=== PATIENT | male | born 1965 | race African-American/Black ===

== ENCOUNTER → 2018-10-01 | Outpatient (CLI) | payer BC ==
[2018-10-01 15:22] LABS: HCT 42.3 % (39.0-53.0); HGB 13.9 gm/dL (13.0-17.5); MCH 30.2 pg (25.0-35.0); MCHC 32.9 g/dL (31.0-37.0); MCV 91.6 fL (80.0-100.0); Mean Platelet Volume 7.6; Platelet Count 174 k/uL (150-450); RBC 4.62 m/uL (4.30-5.90); RDW 13.2 % (11.5-15.5); WBC 7.2 k/uL (3.8-10.6)
[2018-10-01 22:43] LABS: Hemoglobin A1C 6.3 % (4.0-6.0)
[2018-10-02 02:58] LABS: Albumin 4.3 g/dL (3.80-4.90); Albumin/Globulin Ratio 1.87 (1.20-2.10); Anion Gap 7.8 mmol/L (4.00-12.00); Calcium 9.1 mg/dL (8.7-10.3); Carbon Dioxide 24.2 mmol/L (21.6-31.8); Globulin 2.3 g/dL (2.1-3.7); LDL Cholesterol,Calculated 99.8 mg/dL (0.0-131.0); Potassium 4.1 mmol/L (3.5-5.5); Total Bilirubin 0.4 mg/dL (0.2-1.2); Total Protein 6.6 g/dL (6.2-8.2); VLDL Calculation 35.2 mg/dL (5.00-40.00)
== END ==
LOC: LABWHC1 14:56
PROVIDERS: ATTEND Physician Assistant Medical
DX: E11.9 Type 2 diabetes mellitus without complications (principal); E03.9 Hypothyroidism, unspecified; I10 Essential (primary) hypertension
CPT/HCPCS: 36415; 80053; 80061; 83036; 84443; 85027

== ENCOUNTER 2019-09-30 11:48 | Emergency (ER) | payer BC ==
[2019-09-30] MEDS ORDERED: SODIUM CHLORIDE 0.9% 1,000 ML IV STA (12:12)
[2019-09-30] MEDS ORDERED: KETOROLAC 30 MG/ML 1 ML VIAL IVP STA (12:12)
[2019-09-30] MEDS ORDERED: ONDANSETRON 4 MG/2 ML VIAL IVP STA (12:12)
[2019-09-30 12:35] LABS: Basophils # (A) 0.1 k/uL (0-0.2); Basophils % (A) 1 %; Eosinophils # (A) 0.1 k/uL (0-0.7); Eosinophils % (A) 1 %; HCT 42.4 % (39.0-53.0); HGB 13.9 gm/dL (13.0-17.5); Lymphocytes # (A) 1.3 k/uL (1.0-4.8); Lymphocytes % (A) 11 %; MCH 29.9 pg (25.0-35.0); MCHC 32.8 g/dL (31.0-37.0); MCV 91.2 fL (80.0-100.0); Mean Platelet Volume 6.9; Monocytes # (A) 0.7 k/uL (0-1.0); Monocytes % (A) 6 %; Neutrophils # (A) 10.2 k/uL (1.3-7.7); Neutrophils % (A) 81 %; Platelet Count 207 k/uL (150-450); RBC 4.65 m/uL (4.30-5.90); RDW 12.7 % (11.5-15.5); WBC 12.5 k/uL (3.8-10.6)
--- NOTE | 2019-09-30 12:48 | ED ---
Abdominal Pain HPI - General Chief Complaint: Abdominal Pain Stated Complaint: Flank pain Time Seen by Provider: 09/30/19 11:56 Source: patient Mode of arrival: ambulatory Limitations: no limitations - History of Present Illness Initial Comments: Patient is a 53-year-old male, with past medical history of diabetes, hypertension, hyperlipidemia, thyroid disease, presenting to the emergency Department with complaints of right flank pain that started early this morning. Patient states the pain started approximately 5 AM this morning and did wake him up from sleep. Patient states the pain as sharp in nature and does radiate to the right side at times. Patient denies fever, chills. Admits to vomiting and dry heaves this morning secondary to the pain. Patient denies history of kidney stones. Admits to history of appendectomy, no other abdominal surgeries. Patient denies hematuria or other urinary complaints. Patient has no other complaints at this time. Upon arrival to the ER, vital signs are stable. - Related Data Previous Rx's Medication Instructions Recorded Hydrocodone/Acetaminophen [[place] 1 tab PO Q6HR PRN #15 tab 09/30/19 5-325] Ibuprofen [Motrin] 400 mg PO Q8HR PRN #30 tab 09/30/19 Tamsulosin [Flomax] 0.4 mg PO DAILY #7 cap 09/30/19 Allergies Allergy/AdvReac Type Severity Reaction Status Date / Time No Known Allergies Allergy Verified 09/30/19 11:52 Review of Systems ROS Statement: Those systems with pertinent positive or pertinent negative responses have been documented in the HPI. ROS Other: All systems not noted in ROS Statement are negative. Past Medical History Past Medical History: Diabetes Mellitus History of Any Multi-Drug Resistant Organisms: None Reported Past Surgical History: Appendectomy Past Psychological History: No Psychological Hx Reported Smoking Status: Never smoker Past Alcohol Use History: Occasional Past Drug Use History: None Reported General Exam - General Exam Comments Initial Comments: GENERAL: Well-appearing, well-nourished and in no acute distress, but appears uncomfortable. HEAD: Atraumatic, normocephalic. EYES: Pupils equal round and reactive to light, extraocular movements intact, sclera anicteric, conjunctiva are normal. ENT: Nares patent, oropharynx clear without exudates. Moist mucous membranes. NECK: Normal range of motion, supple without lymphadenopathy or JVD. LUNGS: Breath sounds clear to auscultation bilaterally and equal. No wheezes rales or rhonchi. HEART: Regular rate and rhythm without murmurs, rubs or gallops. ABDOMEN: Soft, nontender, normoactive bowel sounds. No guarding, no rebound. No masses appreciated. No CVA tenderness. : Deferred EXTREMITIES: Normal range of motion, no pitting or edema. No clubbing or cyanosis. PSYCH: Normal mood, normal affect. SKIN: Warm, Dry, normal turgor, no rashes or lesions noted. Limitations: no limitations Course Vital Signs 09/30/19 09/30/19 09/30/19 11:50 13:29 15:23 Temperature 97.9 F 98.0 F Pulse Rate 84 82 90 Respiratory 20 18 18 Rate Blood Pressure 160/99 133/89 128/82 O2 Sat by Pulse 99 98 98 Oximetry Medical Decision Making - Medical Decision Making Patient is a 53-year-old male presenting with an acute onset right-sided flank pain that started this morning. Patient does not have history of kidney stones. Vital signs are stable upon arrival. Lab work reveals slight leukocytosis at 12.5, creatinine is slightly elevated at 1.68 from baseline 1.3. UA reveals small amount of blood. CT shows a moderate right hydronephrosis with perinephric edema secondary to a mid right ureteral calculus measuring [address] Eliceo Bolton was consulted who is okay with patient being discharged today. Patient will follow Dr. Bolton on Thursday, October 05 at 10 AM. Patient will be discharged home with Motrin, [place], Flomax. Patient will also be given a strainer. Patient is in agreement with this plan of care. Vital signs remained stable. Patient was given fluids and pain medicine and is comfortable at this time. Return parameters were discussed with the patient and he verbalized understanding. Case discussed with Dr. Fulton who saw the patient and agrees with plan of care. - Lab Data Result diagrams: 09/30/19 12:24 09/30/19 12:24 Lab Results 09/30/19 09/30/19 09/30/19 Range/Units 12:24 12:24 12:24 WBC 12.5 H (3.8-10.6) k/uL RBC 4.65 (4.30-5.90) m/uL Hgb 13.9 (13.0-17.5) gm/dL Hct 42.4 (39.0-53.0) % MCV 91.2 (80.0-100.0) fL MCH 29.9 (25.0-35.0) pg MCHC 32.8 (31.0-37.0) g/dL RDW 12.7 (11.5-15.5) % Plt Count 207 (150-450) k/uL Neutrophils % 81 % Lymphocytes % 11 % Monocytes % 6 % Eosinophils % 1 % Basophils % 1 % Neutrophils # 10.2 H (1.3-7.7) k/uL Lymphocytes # 1.3 (1.0-4.8) k/uL Monocytes # 0.7 (0-1.0) k/uL Eosinophils # 0.1 (0-0.7) k/uL Basophils # 0.1 (0-0.2) k/uL Sodium 142 (137-145) mmol/L Potassium 4.9 (3.5-5.1) mmol/L Chloride 108 H (98-107) mmol/L Carbon Dioxide 23 (22-30) mmol/L Anion Gap 11 mmol/L BUN 20 (9-20) mg/dL Creatinine 1.68 H (0.66-1.25) mg/dL Est GFR (CKD-EPI)AfAm 54 (>60 ml/min/1.73 sqM) Est GFR (CKD-EPI)NonAf 47 (>60 ml/min/1.73 sqM) Glucose 144 H (74-99) mg/dL Calcium 9.6 (8.4-10.2) mg/dL Total Bilirubin 0.5 (0.2-1.3) mg/dL AST 23 (17-59) U/L ALT 29 (21-72) U/L Alkaline Phosphatase 62 (38-126) U/L Total Protein 7.7 (6.3-8.2) g/dL Albumin 4.4 (3.5-5.0) g/dL Amylase 102 (30-110) U/L Lipase 173 (23-300) U/L Urine Color Yellow Urine Appearance Cloudy (Clear) Urine pH 5.0 (5.0-8.0) Ur Specific [place] 1.022 (1.001-1.035) Urine Protein Negative (Negative) Urine Glucose (UA) Negative (Negative) Urine Ketones Negative (Negative) Urine Blood Small H (Negative) Urine Nitrite Negative (Negative) Urine Bilirubin Negative (Negative) Urine Urobilinogen <2.0 (<2.0) mg/dL Ur Leukocyte Esterase Negative (Negative) Urine RBC 9 H (0-5) /hpf Urine WBC 1 (0-5) /hpf Uric Acid Crystals Occasional H (None) /hpf Urine Mucus Rare H (None) /hpf Disposition Clinical Impression: Calculus of right ureter, Abdominal pain Disposition: HOME SELF-CARE Condition: Stable Instructions (If sedation given, give patient instructions): Kidney Stones (ED) Additional Instructions: Please return to the Emergency Department if symptoms worsen or any other concerns. Follow-up with Dr. Bolton as discussed on October 05 at 10 AM. Take Motrin as needed for discomfort as well as [place] when needed for severe pain. Use strainer with urination. Prescriptions: Tamsulosin [Flomax] 0.4 mg PO DAILY #7 cap Ibuprofen [Motrin] 400 mg PO Q8HR PRN #30 tab PRN Reason: Pain Hydrocodone/Acetaminophen [[place] 5-325] 1 tab PO Q6HR PRN #15 tab PRN Reason: Pain Is patient prescribed a controlled substance at d/c from ED?: Yes When asked, does pt state using other controlled substances?: No If prescribed controlled substance>3 days was MAPS reviewed?: Prescribed <3 Days If opioid is for acute pain is fill amount 7 days or less?: Yes If Rx opioid, was Start Talking consent form obtained?: Yes Referrals: Annia Brown DO [Primary Care Provider] - 1-2 days Pardeep Bolton MD [STAFF PHYSICIAN] - 1-2 days
[2019-09-30 12:50] LABS: Appearance,Urine Cloudy (Clear); Bilirubin,Urine Negative (Negative); Blood,Urine Small (Negative); Color,Urine Yellow; Glucose,Urine (UA) Negative (Negative); Ketones,Urine Negative (Negative); Leukocyte Esterase,Urine Negative (Negative); Mucus,Urine Rare /hpf; Nitrite,Urine Negative (Negative); Protein,Urine Negative (Negative); RBC,Urine 9 /hpf (0-5); Specific Gravity,Urine 1.022 (1.001-1.035); Uric Acid Crystals,Urine Occasional /hpf; Urobilinogen,Urine <2.0 mg/dL (<2.0); WBC,Urine 1 /hpf (0-5)
[2019-09-30 12:55] LABS: Albumin 4.4 g/dL (3.5-5.0); Calcium 9.6 mg/dL (8.4-10.2); Potassium 4.9 mmol/L (3.5-5.1); Total Bilirubin 0.5 mg/dL (0.2-1.3); Total Protein 7.7 g/dL (6.3-8.2)
--- NOTE | 2019-09-30 13:10 | CT ---
EXAMINATION TYPE: CT abdomen pelvis wo con DATE OF EXAM: 09/30/2019 COMPARISON: Right abdominal pain HISTORY: Right sided abdominal pain. CT DLP: 1227.4 mGycm Automated exposure control for dose reduction was used. TECHNIQUE: Helical acquisition of images was performed from the lung bases through the pelvis. FINDINGS: LUNG BASES: No significant abnormality is appreciated. LIVER/GB: No significant abnormality is appreciated. PANCREAS: No significant abnormality is seen. SPLEEN: No significant abnormality is seen. ADRENALS: No significant abnormality is seen. KIDNEYS: There is moderate right hydronephrosis with perinephric edema. There are 2 punctate right renal calyc eal calcifications measuring 1 mm. There is an obstructing mid right ureteral calculus measuring 7 mm in diameter. REPRODUCTIVE ORGANS: No significant abnormality is seen URINARY BLADDER: No significant abnormality is seen. ADENOPATHY: None visualized. OSSEOUS STRUCTURES: Hypertrophic change of the vertebral column. BOWEL: Bowel gas pattern nonspecific. Appendix not seen with certainty. Small hiatal hernia noted. OTHER: Aorta of normal caliber. No free fluid. No free air. IMPRESSION: MODERATE RIGHT HYDRONEPHROSIS WITH PERINEPHRIC EDEMA SECONDARY TO A MID RIGHT URETERAL CALCULUS MEASU RING 7 MM.
[2019-09-30 13:31] VITALS: RESP 18
[2019-09-30 15:25] VITALS: BP 128/82; PULSE 90; TEMP 98
== END 2019-09-30 15:35 | disposition home or self-care (01) ==
LOC: EC 11:48
DX: N13.2 Hydronephrosis with renal and ureteral calculous obstruction (principal); E11.9 Type 2 diabetes mellitus without complications; I10 Essential (primary) hypertension; E78.5 Hyperlipidemia, unspecified
CPT/HCPCS: 36415; 80053; 82150; 83690; 85025; 81001; 74176; 99284; 96374; 96375; 96361 ×3; J2405; J1885

== ENCOUNTER 2019-10-14 10:17 | Day surgery (SDC) | payer BC ==
--- NOTE | 2019-10-13 17:00 | P.HPIHPCON ---
History of Present Illness H&P Date: 10/14/19 Chief Complaint: Right ureteral calculi Mr. Scott is a 54-year-old male that presented to our clinic with a 7 mm right- sided ureteral calculi. I discussed with him the options including ureteroscopy and shockwave lithotripsy. Discussed with him the risk and benefit of each approach. He elected to proceed with ureteroscopy. I Discussed with him with ureteroscopy there is a risk of bleeding infection and ureteral perforation. Discussed the risk of anesthesia with him. He understood all the risk and agreed to proceed with right-sided ureteroscopy Consent for Procedure: I have explained the operation/procedure to the patient, including the risks, benefits, side effects, alternative therapies (including not receiving the proposed treatment or service), the likelihood of the patient achieving his/her goals, and potential recuperation problems for the procedure/sedation/analgesia, as well as any blood products, if indicated. I also explained to the patient the risks, benefits and side effects of the alternatives, as well as the risks related to not receiving the proposed procedure, care, treatment, or services. - Constitutional Constitutional: Denies chills, Denies fever - Cardiovascular Cardiovascular: Denies chest pain, Denies leg edema Past Medical History Past Medical History: Diabetes Mellitus, Hyperlipidemia, Hypertension, Thyroid Disorder Additional Past Medical History / Comment(s): kidney stones History of Any Multi-Drug Resistant Organisms: None Reported Past Surgical History: Appendectomy Past Anesthesia/Blood Transfusion Reactions: No Reported Reaction Smoking Status: Never smoker - Past Family History Father Family Medical History: Deep Vein Thrombosis (DVT) Medications and Allergies Home Medications Medication Instructions Recorded Confirmed Type Hydrocodone/Acetaminophen [[place] 1 tab PO Q6HR PRN #15 tab 09/30/19 10/13/19 Rx 5-325] Ergocalciferol [Vitamin D2] 50,000 unit PO Q7D 10/13/19 10/13/19 History Levothyroxine Sodium [Synthroid] 50 mcg PO DAILY 10/13/19 10/13/19 History Ramipril [Altace] 5 mg PO 1700 10/13/19 10/13/19 History Simvastatin [Zocor] 20 mg PO HS 10/13/19 10/13/19 History metFORMIN HCL [Glucophage] 500 mg PO BID 10/13/19 10/13/19 History Allergies Allergy/AdvReac Type Severity Reaction Status Date / Time No Known Allergies Allergy Verified 10/13/19 12:38 Surgical - Exam - General well developed, well nourished - ENT normal mucosa, no hearing loss - Respiratory normal expansion, normal respiratory effort - Abdomen Abdomen: soft, non tender - Psychiatric oriented to time, oriented to person, oriented to place Assessment and Plan Assessment: 54 yo male with history of 7 mm midureteral stone, he elected to proceed with a right-sided ureteroscopy, holmium laser lithotripsy, stone basketing and stent placement
[~2019-10-14 10:17] MED LIST: DEXAMETHASONE SOD PHOSPHATE 10 MG/ML 1 ML VIAL IV ONE; HYDROmorphone 0.5 MG/0.5 ML SYRINGE IVP PRN; LIDOCAINE 1% 20 ML VIAL (10MG/ML) FOR IV START INTRADERMA PRN; ONDANSETRON 4 MG/2 ML VIAL IVP ONE; fentaNYL (PF) 50 MCG/ML 2 ML AMP IV PRN
[2019-10-14] MEDS: LACTATED RINGERS 1,000 ML IV SCH (10:46)
[2019-10-14 11:08] LABS: Glucose,Whole Blood 101 mg/dL (75-99)
--- NOTE | 2019-10-14 13:06 | XR ---
Abdomen History right-sided kidney stone frontal View the abdomen on [address] 09/30/2019 Faint calcifications seen overlying the lower pole the right kidney as noted on patient's CT. The rig ht ureteral calculus seen on patient's prior CT not seen with certainty. Exam may be somewhat limited by patient body habitus. Surgical clip present in the right hemiabdomen. IMPRESSION: Right-sided nephrolithiasis. Right ureteral calculus not well seen.
[2019-10-14] MEDS ORDERED: PROPOFOL 10 MG/ML 20 ML VIAL IV ONE (13:25)
[2019-10-14] MEDS ORDERED: ROCURONIUM BROMIDE 10 MG/ML 10 ML VIAL IV ONE (13:25)
[2019-10-14] MEDS ORDERED: fentaNYL (PF) 50 MCG/ML 2 ML AMP ONE (13:25)
[2019-10-14] MEDS ORDERED: LIDOCAINE 1% INJ 10MG/ML (20 ML MDV) ONE (13:25)
[2019-10-14] MEDS ORDERED: GLYCOPYRROLATE 0.2 MG/ML 2 ML VIAL ONE (13:25)
[2019-10-14] MEDS ORDERED: NEOSTIGMINE 1 MG/ML 10 ML VIAL ONE (13:25)
[2019-10-14] MEDS ORDERED: SUCCINYLCHOLINE CHLORIDE 100 MG/5 ML SYR IV ONE (13:25)
[2019-10-14] MEDS ORDERED: MIDAZOLAM 2 MG/2 ML VIAL ONE (13:25)
[2019-10-14 14:37] LABS: Glucose,Whole Blood 106 mg/dL (75-99)
[2019-10-14] MEDS ORDERED: LACTATED RINGERS 1,000 ML IV ONE (15:28)
--- NOTE | 2019-10-14 16:24 | FL ---
Fluoroscopy HISTORY: Stent placement 29 seconds fluoroscopy time supplied to the referring clinician. 1 intraoperative C-arm images docum ent the procedure. See dictated report from urology.
[2019-10-14] MEDS: LISINOPRIL 20 MG TAB PO SCH (17:10)
[2019-10-14] MEDS: SODIUM CHLORIDE 0.9% 1,000 ML IV SCH ×2 (17:11→18:24)
[2019-10-14 17:22] VITALS: BMI 38.2
[2019-10-14 18:01] LABS: Glucose,Whole Blood 88 mg/dL (75-99)
[2019-10-14] MEDS: HYDROcodone/APAP 5-325MG 1 EACH TAB PO PRN ×2 (18:24→23:33)
[2019-10-14 20:38] LABS: Glucose,Whole Blood 205 mg/dL (75-99)
[2019-10-14] MEDS: metFORMIN 500 MG TAB PO SCH (20:44)
[2019-10-14] MEDS: ATORVASTATIN 10 MG TAB PO SCH (20:45)
[2019-10-14] MEDS: HEPARIN SODIUM,PORCINE 5,000 UNIT/ML 1 ML VIAL SQ SCH (20:45)
[2019-10-14 21:51] LABS: Basophils # (A) 0.1 k/uL (0-0.2); Basophils % (A) 1 %; Eosinophils # (A) 0.1 k/uL (0-0.7); Eosinophils % (A) 1 %; HCT 39.9 % (39.0-53.0); HGB 12.6 gm/dL (13.0-17.5); Lymphocytes # (A) 1.1 k/uL (1.0-4.8); Lymphocytes % (A) 10 %; MCH 28.8 pg (25.0-35.0); MCHC 31.7 g/dL (31.0-37.0); MCV 90.9 fL (80.0-100.0); Mean Platelet Volume 6.8; Monocytes # (A) 0.4 k/uL (0-1.0); Monocytes % (A) 3 %; Neutrophils # (A) 9.7 k/uL (1.3-7.7); Neutrophils % (A) 84 %; Platelet Count 318 k/uL (150-450); RBC 4.39 m/uL (4.30-5.90); RDW 12.1 % (11.5-15.5); WBC 11.4 k/uL (3.8-10.6)
[2019-10-14 22:02] LABS: Calcium 9.4 mg/dL (8.4-10.2); Potassium 4.5 mmol/L (3.5-5.1)
--- NOTE | 2019-10-14 22:23 | P.OP ---
Date of Procedure: 10/14/19 Preoperative Diagnosis: Ureteral Calculi Postoperative Diagnosis: Ureteral Calculi/UTI Procedure(s) Performed: Cystoscopy, Right Renal Aspiration and ureteral stent placement Implants: 4.8 Fr X 26 cm stent Anesthesia: DAGMAR Surgeon: Jesus Marinelli Estimated Blood Loss (ml): 5 Pathology: other (right renal pelvis culture) Condition: stable Disposition: PACU Indications for Procedure: Mr. Estrada is a 54-year-old male that presented to our clinic with a 7 mm right- sided ureteral calculi. I discussed with him the options including ureteroscopy and shockwave lithotripsy. Discussed with him the risk and benefit of each approach. He elected to proceed with ureteroscopy. I Discussed with him with ureteroscopy there is a risk of bleeding infection and ureteral perforation. Discussed the risk of anesthesia with him. He understood all the risk and agreed to proceed with right-sided ureteroscopy Operative Findings: Purulent drainage from the collecting system on the right Description of Procedure: Patient was brought to the operating room, general anesthesia was induced. He was placed in dorsal lithotimy position and prepped and draped in sterile fashion. cystoscope fitted with 22 sheath was inserted to the bladder, but patient had multiple annular bulbar strictures that I was not able to navigate the scope past the stricture. At this time a cystoscope fitted with 19 Fr sheath was inserted and navigated through the bulbar strictures. Cystoscope was advanced into the bladder. Cystoscope was performed which showed no abnormality within the bladder. A 0.035 sensor wire was advanced through the scope and into the renal pelvis under fluoroscopy. At this time purulent drainage was noticed around the wire. The cystoscope was removed with wire in place. a 6 Fr catheter was passed over the wire and into the renal pelvis. Purulent drainage was obtained a sent for culture. The catheter was removed, with wire in place. a 4.8 Fr X 26 cm stent was passed over the wire under fluorscope the proximal and distal curl was confirmed on fluoroscopy. At this time the cystoscope with 19 Fr sheath was reinserted and distal curl was visualized. A 0.035 sensor wire was inserted through the cystoscope and into the bladder. a 16 Fr catheter was passed over the wire and into the bladder with return of clear urine. Patient was awaken from anesthesia and taken to recover room in stable condition.
[2019-10-15] MEDS: HYDROcodone/APAP 5-325MG 1 EACH TAB PO PRN ×2 (04:52→22:07)
[2019-10-15] MEDS: LEVOTHYROXINE 50 MCG TAB PO SCH (06:14)
[2019-10-15] MEDS: LACTATED RINGERS 1,000 ML IV SCH (06:15)
[2019-10-15] MEDS: SODIUM CHLORIDE 0.9% 1,000 ML IV SCH ×3 (06:16→22:07)
[2019-10-15 07:14] LABS: Glucose,Whole Blood 126 mg/dL (75-99)
[2019-10-15] MEDS: metFORMIN 500 MG TAB PO SCH ×2 (09:45→21:26)
[2019-10-15] MEDS: HEPARIN SODIUM,PORCINE 5,000 UNIT/ML 1 ML VIAL SQ SCH ×2 (09:45→21:26)
--- NOTE | 2019-10-15 10:08 | P.PN ---
Subjective Progress Note Date: 10/15/19 The patient is in his first postoperative day from cystoscopy and direct vision internal urethrotomy and placement of double-J catheter for an obstructing stone with pyelonephrosis. He feels better. His urine is clearing. His vital signs are stable. He is afebrile. Because of the strictures the catheter will remain in place stone next week. I will wait and see if the urine culture shows by tomorrow so we can determine discharge planning. In the meanwhile we'll continue with IV antibiotics. Objective - Vital Signs Vital signs: Vital Signs Temp 97.6 F 10/15/19 07:00 Pulse 78 10/15/19 07:00 Resp 17 10/15/19 07:00 BP 136/85 10/15/19 07:00 Pulse Ox 80 L 10/15/19 07:00 Intake & Output 10/14/19 10/15/19 10/15/19 18:59 06:59 18:59 Intake Total 1450 Output Total 0 1200 Balance 1450 -1200 Intake: IV 1450 Output: Urine 1200 Estimated Blood Loss 0 Other: Voiding Method Indwelling Catheter Indwelling Catheter Indwelling Catheter - Labs CBC & Chem 7: 10/14/19 21:09 10/14/19 21:09 Labs: Abnormal Lab Results - Last 24 Hours (Table) 10/14/19 10/14/19 10/14/19 Range/Units 10:57 14:35 20:38 WBC (3.8-10.6) k/uL Hgb (13.0-17.5) gm/dL Neutrophils # (1.3-7.7) k/uL Carbon Dioxide (22-30) mmol/L BUN (9-20) mg/dL Creatinine (0.66-1.25) mg/dL Glucose (74-99) mg/dL POC Glucose (mg/dL) 101 H 106 H 205 H (75-99) mg/dL 10/14/19 10/14/19 10/15/19 Range/Units 21:09 21:09 06:57 WBC 11.4 H (3.8-10.6) k/uL Hgb 12.6 L (13.0-17.5) gm/dL Neutrophils # 9.7 H (1.3-7.7) k/uL Carbon Dioxide 20 L (22-30) mmol/L BUN 21 H (9-20) mg/dL Creatinine 1.74 H (0.66-1.25) mg/dL Glucose 209 H (74-99) mg/dL POC Glucose (mg/dL) 126 H (75-99) mg/dL Microbiology - Last 24 Hours (Table) 10/14/19 14:07 Gram Stain - Preliminary Kidney Tissue Culture - Preliminary 10/14/19 14:07 Anaerobic Culture - Preliminary Kidney
[2019-10-15] MEDS: LISINOPRIL 20 MG TAB PO SCH (16:00)
[2019-10-15 17:17] LABS: Glucose,Whole Blood 136 mg/dL (75-99)
[2019-10-15] MEDS: ATORVASTATIN 10 MG TAB PO SCH (21:26)
[2019-10-16] MEDS: LEVOTHYROXINE 50 MCG TAB PO SCH (05:50)
[2019-10-16] MEDS: SODIUM CHLORIDE 0.9% 1,000 ML IV SCH (05:50)
[2019-10-16] MEDS: metFORMIN 500 MG TAB PO SCH (07:57)
[2019-10-16] MEDS: HEPARIN SODIUM,PORCINE 5,000 UNIT/ML 1 ML VIAL SQ SCH (07:57)
[2019-10-16 08:46] VITALS: BP 160/93; PULSE 80; RESP 16; TEMP 98.4
--- NOTE | 2019-10-16 11:27 | P.DS ---
Providers Attending physician: Jesus Marinelli MD Primary care physician: [place] [facility] Course: The patient was brought into the hospital 10/14/2019 for ureteroscopy and stone manipulation. The urine was grossly infected thus a stent was placed instead of the manipulation. Urethral strictures were identified and dealt with. Patient has done well. Cultures are still pending. He is afebrile. His vital signs are stable. I'll discharge home on Keflex. He'll follow-up with next week. Decisions on when the catheter will be removed and when the stone and stent will be removed can be made at that time. Condition is good. He'll take Tylenol or Motrin for pain. Patient understands instructions. Patient Condition at Discharge: Good Plan - Discharge Summary Discharge Rx Participant: Yes New Discharge Prescriptions: New Cephalexin [Keflex] 500 mg PO Q8HR #30 cap No Action Hydrocodone/Acetaminophen [[place] 5-325] 1 tab PO Q6HR PRN #15 tab PRN Reason: Pain Ergocalciferol [Vitamin D2] 50,000 unit PO Q7D metFORMIN HCL [Glucophage] 500 mg PO BID Simvastatin [Zocor] 20 mg PO HS Ramipril [Altace] 5 mg PO 1700 Levothyroxine Sodium [Synthroid] 50 mcg PO DAILY Discharge Medication List Hydrocodone/Acetaminophen [[place] 5-325] 1 tab PO Q6HR PRN #15 tab 09/30/19 [Rx] Ergocalciferol [Vitamin D2] 50,000 unit PO Q7D 10/13/19 [History] Levothyroxine Sodium [Synthroid] 50 mcg PO DAILY 10/13/19 [History] Ramipril [Altace] 5 mg PO 1700 10/13/19 [History] Simvastatin [Zocor] 20 mg PO HS 10/13/19 [History] metFORMIN HCL [Glucophage] 500 mg PO BID 10/13/19 [History] Cephalexin [Keflex] 500 mg PO Q8HR #30 cap 10/16/19 [Rx] Follow up Appointment(s)/Referral(s): Jesus Marinelli MD [STAFF PHYSICIAN] - 10/19/19 (call thursday for an appoinment probably thursday) Activity/Diet/Wound Care/Special Instructions: home with bacon Discharge Disposition: HOME SELF-CARE
[2019-10-16 11:43] LABS: Glucose,Whole Blood 99 mg/dL (75-99)
== END 2019-10-16 12:46 | disposition home or self-care (01) ==
LOC: OR 10:17 → 4SSUR 16:27 → OR 10-16 12:46
PROVIDERS: ATTEND Urology
DX: N20.1 Calculus of ureter (principal); N13.6 Pyonephrosis; N35.919 Unspecified urethral stricture, male, unspecified site; E11.9 Type 2 diabetes mellitus without complications; E78.5 Hyperlipidemia, unspecified; I10 Essential (primary) hypertension; E07.9 Disorder of thyroid, unspecified; Z87.442 Personal history of urinary calculi; Z84.89 Family history of other specified conditions; Z79.84 Long term (current) use of oral hypoglycemic drugs; Z79.890 Hormone replacement therapy; Z79.899 Other long term (current) drug therapy
CPT/HCPCS: 52332; 80048; 85025; 87070; 87205; 87075; 74018; C2625; C1769; C1758; J2250; J1644 ×3; J1100; J2710; J0690 ×3; J2405; J2001; J3010; J0330; J2704; J1170; 93005

== ENCOUNTER 2019-10-24 11:14 | Day surgery (SDC) | payer BC ==
[2019-10-19 12:41] VITALS: BMI 39.5
--- NOTE | 2019-10-22 22:05 | P.HPIHPCON ---
History of Present Illness H&P Date: 10/24/19 Chief Complaint: Right ureteral Calculi Mr. Moreno is a 54-year-old male with history of right-sided ureteral stone. he underwent ureteral stent placements on October 14, at that time it was noticed that he had purulent drainage from his right collecting system. Decision was made not to proceed with ureteroscopy at that time and a stent was placed. He presents today for definitive stone management. He agreed to proceed with ureteroscopy, discussed with him the risks including bleeding infection injury to the ureter. I also discussed the risks from anesthesia with him. He understood all the risk and agreed to proceed with the surgery Consent for Procedure: I have explained the operation/procedure to the patient, including the risks, benefits, side effects, alternative therapies (including not receiving the proposed treatment or service), the likelihood of the patient achieving his/her goals, and potential recuperation problems for the procedure/sedation/analgesia, as well as any blood products, if indicated. I also explained to the patient the risks, benefits and side effects of the alternatives, as well as the risks related to not receiving the proposed procedure, care, treatment, or services. - Constitutional Constitutional: Denies chills, Denies fever - Cardiovascular Cardiovascular: Denies chest pain, Denies leg edema Past Medical History Past Medical History: Diabetes Mellitus, Hyperlipidemia, Hypertension, Thyroid Disorder Additional Past Medical History / Comment(s): kidney stones, recent admission for urinary infection History of Any Multi-Drug Resistant Organisms: None Reported Past Surgical History: Appendectomy Additional Past Surgical History / Comment(s): cystoscopy 10-14-19 Past Anesthesia/Blood Transfusion Reactions: No Reported Reaction Smoking Status: Never smoker - Past Family History Father Family Medical History: Deep Vein Thrombosis (DVT) Medications and Allergies Home Medications Medication Instructions Recorded Confirmed Type Hydrocodone/Acetaminophen [[place] 1 tab PO Q6HR PRN #15 tab 09/30/19 10/19/19 Rx 5-325] Ergocalciferol [Vitamin D2] 50,000 unit PO Q7D 10/13/19 10/19/19 History Levothyroxine Sodium [Synthroid] 50 mcg PO DAILY 10/13/19 10/19/19 History Ramipril [Altace] 5 mg PO 1700 10/13/19 10/19/19 History Simvastatin [Zocor] 20 mg PO HS 10/13/19 10/19/19 History metFORMIN HCL [Glucophage] 500 mg PO BID 10/13/19 10/19/19 History Cephalexin [Keflex] 500 mg PO Q8HR #30 cap 10/16/19 10/19/19 Rx Allergies Allergy/AdvReac Type Severity Reaction Status Date / Time No Known Allergies Allergy Verified 10/19/19 12:31 Surgical - Exam - General well developed, well nourished - Respiratory normal expansion, normal respiratory effort - Abdomen Abdomen: soft, non tender - Psychiatric oriented to time, oriented to person, oriented to place Assessment and Plan Assessment: 54-year-old male with a right-sided ureteral stone -OR for right-sided sided ureteroscopy, holmium laser lithotripsy, stone basketing, and stent exchange
[~2019-10-24 11:14] MED LIST changes: -DEXAMETHASONE SOD PHOSPHATE 10 MG/ML 1 ML VIAL IV ONE; +LACTATED RINGERS 1,000 ML IV SCH; -fentaNYL (PF) 50 MCG/ML 2 ML AMP IV PRN
[2019-10-24 11:53] LABS: Glucose,Whole Blood 114 mg/dL (75-99)
[2019-10-24] MEDS ORDERED: PROPOFOL 10 MG/ML 20 ML VIAL IV ONE (13:27)
[2019-10-24] MEDS ORDERED: MIDAZOLAM 2 MG/2 ML VIAL ONE (13:27)
[2019-10-24] MEDS ORDERED: fentaNYL (PF) 50 MCG/ML 2 ML AMP ONE (13:27)
[2019-10-24] MEDS ORDERED: ceFAZolin 1,000 MG VIAL ONE (13:27)
[2019-10-24] MEDS ORDERED: SUCCINYLCHOLINE CHLORIDE 100 MG/5 ML SYR IV ONE (13:27)
[2019-10-24] MEDS ORDERED: ROCURONIUM BROMIDE 10 MG/ML 10 ML VIAL IV ONE (13:27)
[2019-10-24] MEDS ORDERED: GLYCOPYRROLATE 0.2 MG/ML 2 ML VIAL ONE (13:27)
[2019-10-24] MEDS ORDERED: LIDOCAINE 1% INJ 10MG/ML (20 ML MDV) ONE (13:27)
[2019-10-24] MEDS ORDERED: NEOSTIGMINE 1 MG/ML 10 ML VIAL ONE (13:27)
[2019-10-24] MEDS ORDERED: KETOROLAC 30 MG/ML 1 ML VIAL ONE (13:27)
[2019-10-24] MEDS ORDERED: SODIUM CHLORIDE 0.9% 100 ML with ceFAZolin 2,000 MG IV ONE ×2 (13:50)
--- NOTE | 2019-10-24 14:48 | FL ---
EXAMINATION TYPE: FL guidance operating room DATE OF EXAM: 10/24/2019 HISTORY: Flouroscopy time 20 seconds of fluoroscopy provided. IMPRESSION: 1. Fluoroscopy time.
--- NOTE | 2019-10-24 14:57 | P.OP ---
Date of Procedure: 10/24/19 Preoperative Diagnosis: Right ureteral Calculi Postoperative Diagnosis: Same Procedure(s) Performed: Cystoscopy, right ureteroscopy, holmium laser lithotripsy, stone basketing and stent exchange Implants: 4.8-[place] by 26 cm stent Anesthesia: DAGMAR Surgeon: Jesus Marinelli Estimated Blood Loss (ml): 5 Pathology: other (right ureteral stone for analysis) Condition: stable Indications for Procedure: Mr. Moreno is a 54-year-old male with history of right-sided ureteral stone. He underwent ureteral stent placements on October 14, at that time it was noticed that he had purulent drainage from his right collecting system. Decision was made not to proceed with ureteroscopy at that time and a stent was placed. He presents today for definitive stone management. He agreed to proceed with ureteroscopy, discussed with him the risks including bleeding infection injury to the ureter. I also discussed the risks from anesthesia with him. He understood all the risk and agreed to proceed with the surgery Operative Findings: Right ureteral stone impaction of the proximal ureter Description of Procedure: The patient was brought to the operating room, general anesthesia was induced. He was prepped and draped in sterile fashion placed in a dorsal lithotomy position. Cystoscope fitted with a 22 sheath was inserted per urethra the stents was grasped with a stent grasper removed to the meatus a 0.035 sensor wire was advanced through the stent and up to the renal pelvis. The stent was removed with the wire in place. A semirigid ureteroscope was inserted per urethra and advanced up the right ureteral orifice the ureteroscope was advanced up to the proximal ureter where a large stone was encountered of the stone was impacted at that site. using the holmium laser the stone was fragmented into small fragments. the fragments were removed using the zerotip stone basket. repeat ureteroscopy showed no residual stone or a injury to the ureter. There ureteroscope was withdrawn the wire in place. Stones were sent for analysis. The cystoscope was backloaded over the wire. A ureteral stent was passed over the wire into the renal pelvis. The proximal curl was confirmed on fluoroscopy and the distal curl was confirmed on cystoscopy. The bladder was emptied at the end of the case the patient was taken to PACU in stable condition
[2019-10-24 15:00] VITALS: TEMP 98.3
[2019-10-24 15:31] VITALS: PULSE 77; RESP 18
[2019-10-24 16:09] VITALS: BP 123/82
== END 2019-10-24 16:13 | disposition home or self-care (01) ==
LOC: OR 11:14
PROVIDERS: ATTEND Urology
DX: N20.1 Calculus of ureter (principal); N39.0 Urinary tract infection, site not specified; E11.9 Type 2 diabetes mellitus without complications; E78.5 Hyperlipidemia, unspecified; I10 Essential (primary) hypertension; E07.9 Disorder of thyroid, unspecified; Z87.442 Personal history of urinary calculi; Z98.890 Other specified postprocedural states; Z79.899 Other long term (current) drug therapy; Z79.890 Hormone replacement therapy; Z79.84 Long term (current) use of oral hypoglycemic drugs; Z79.2 Long term (current) use of antibiotics; Z82.49 Family history of ischemic heart disease and other diseases of the circulatory system
CPT/HCPCS: 52356; 82365; C2625; J2250; J2710; J2405; J0690; J2001; J3010; J1885; J0330; J2704

== ENCOUNTER 2020-09-20 06:57 | Day surgery (SDC) | payer BC ==
[2020-09-19 11:30] VITALS: BMI 40.7
[~2020-09-20 06:57] MED LIST changes: -HYDROmorphone 0.5 MG/0.5 ML SYRINGE IVP PRN; -LIDOCAINE 1% 20 ML VIAL (10MG/ML) FOR IV START INTRADERMA PRN; -ONDANSETRON 4 MG/2 ML VIAL IVP ONE
[2020-09-20] MEDS ORDERED: LIDOCAINE 1% (10MG/ML) FOR IV START INTRADERMA ONE (07:20)
[2020-09-20 07:21] LABS: Glucose,Whole Blood 101 mg/dL (75-99)
[2020-09-20 07:24] VITALS: TEMP 97.1
[2020-09-20] MEDS ORDERED: PROPOFOL 10 MG/ML 20 ML VIAL IV ONE (07:40)
--- NOTE | 2020-09-20 07:51 | P.GSHP ---
History of Present Illness H&P Date: 09/20/20 Chief Complaint: Screening colonoscopy This a 54-year-old male presents today for screening colonoscopy. Patient denies any significant GI complaints. He's never had a colonoscopy before. Past Medical History Past Medical History: Diabetes Mellitus, Hyperlipidemia, Hypertension, Thyroid Disorder Additional Past Medical History / Comment(s): kidney stones, recent admission for urinary infection History of Any Multi-Drug Resistant Organisms: None Reported Past Surgical History: Appendectomy Additional Past Surgical History / Comment(s): cystoscopy Past Anesthesia/Blood Transfusion Reactions: No Reported Reaction Past Psychological History: No Psychological Hx Reported Smoking Status: Never smoker Past Alcohol Use History: Occasional Past Drug Use History: None Reported - Past Family History Father Family Medical History: Deep Vein Thrombosis (DVT) Mother Family Medical History: Cancer Medications and Allergies Home Medications Medication Instructions Recorded Confirmed Type Ergocalciferol [Vitamin D2] 50,000 unit PO MO 10/13/19 09/19/20 History Levothyroxine Sodium [Synthroid] 50 mcg PO DAILY 10/13/19 09/19/20 History Simvastatin [Zocor] 20 mg PO HS 10/13/19 09/19/20 History metFORMIN HCL [Glucophage] 500 mg PO BID 10/13/19 09/19/20 History ramipriL [Altace] 5 mg PO 1700 10/13/19 09/19/20 History Allergies Allergy/AdvReac Type Severity Reaction Status Date / Time No Known Allergies Allergy Verified 10/24/19 11:36 Surgical - Exam Vital Signs Temp Pulse Resp BP Pulse Ox 97.1 F L 71 20 120/73 97 09/20/20 07:11 09/20/20 07:11 09/20/20 07:11 09/20/20 07:11 09/20/20 07:11 - General well developed, well nourished, no distress - Eyes PERRL - ENT normal pinna - Neck no masses - Respiratory normal expansion - Cardiovascular Rhythm: regular - Abdomen Abdomen: soft, non tender Results - Labs Abnormal Lab Results - Last 24 Hours (Table) 09/20/20 Range/Units 07:18 POC Glucose (mg/dL) 101 H (75-99) mg/dL Assessment and Plan Assessment: We'll perform screening colonoscopy
--- NOTE | 2020-09-20 07:58 | P.OP ---
Date of Procedure: 09/20/20 Preoperative Diagnosis: Screening colonoscopy Postoperative Diagnosis: Normal colonoscopy Procedure(s) Performed: Colonoscopy Anesthesia: MAC Surgeon: Pancho Salazar Pathology: none sent Condition: stable Disposition: PACU Description of Procedure: PROCEDURE: The patient was placed on the endoscopy table in the lateral position. Digital rectal examination was performed which revealed no abnormalities. The prostate was symmetrical without nodules. Flexible colonoscope was then placed in the patient's anus and passed throughout the entire colon. The ileocecal valve was visualized. The cecum, ascending, transverse, descending and sigmoid colon were normal. The rectum was normal as well. There were no masses, polyps or diverticula noted in the entire colon. SUMMARY OF FINDINGS: Normal colonoscopy.
[2020-09-20 08:03] VITALS: RESP 16
[2020-09-20 08:17] VITALS: BP 124/85; PULSE 76
== END 2020-09-20 08:41 | disposition home or self-care (01) ==
LOC: ORWHC2ENDO 06:57
PROVIDERS: ATTEND Surgery
DX: Z12.11 Encounter for screening for malignant neoplasm of colon (principal); I10 Essential (primary) hypertension; E78.5 Hyperlipidemia, unspecified; E11.9 Type 2 diabetes mellitus without complications; E07.9 Disorder of thyroid, unspecified; Z87.442 Personal history of urinary calculi; Z98.890 Other specified postprocedural states; Z82.49 Family history of ischemic heart disease and other diseases of the circulatory system; Z80.9 Family history of malignant neoplasm, unspecified; Z79.890 Hormone replacement therapy; Z79.84 Long term (current) use of oral hypoglycemic drugs; Z79.899 Other long term (current) drug therapy; E66.01 Morbid (severe) obesity due to excess calories; Z68.41 Body mass index [BMI] 40.0-44.9, adult
CPT/HCPCS: G0121; J2704; 45378

== ENCOUNTER 2022-06-20 17:26 | Inpatient (IN) | payer BC ==
[2022-06-20] MEDS ORDERED: FAMOTIDINE 20 MG/2 ML VIAL IV STA (18:21)
[2022-06-20] MEDS ORDERED: SODIUM CHLORIDE 0.9% 1,000 ML IV STA ×2 (18:21→20:21)
[2022-06-20] MEDS ORDERED: ONDANSETRON 4 MG/2 ML VIAL IVP STA (18:21)
[2022-06-20] MEDS ORDERED: KETOROLAC 15 MG/ML 1 ML VIAL IVP STA (18:21)
--- NOTE | 2022-06-20 18:27 | ED ---
Abdominal Pain HPI - General Chief Complaint: Abdominal Pain Stated Complaint: abd pain Time Seen by Provider: 06/20/22 17:55 Source: patient, family, RN notes reviewed Mode of arrival: ambulatory Limitations: no limitations - History of Present Illness Initial Comments: This is a 56-year-old male who presents to the emergency department with abdominal pain. This started yesterday. Describes this as a soreness in the center of his abdomen. Unsure if he may have eaten something bad. He has associated nausea but no vomiting. Today he had an episode of diarrhea. States that he has never had a pain like this before. Denies any fevers or chills. He has had his appendix removed. He has been treated for diabetes for 4 years. Denies any hx of DKA. Currently taking 500mg of Metformin twice daily. Denies any fevers, chills, sore throat, cough, dyspnea, chest pain, palpitations, vomiting, back pain, or headaches. MD Complaint: abdominal pain Onset/Timin -: days(s) Location: periumbilical Consistency: constant Associated Symptoms: nausea, diarrhea - Related Data Home Medications Medication Instructions Recorded Confirmed Ergocalciferol [Vitamin D2] 50,000 unit PO MO 10/13/19 06/20/22 Levothyroxine Sodium [Synthroid] 50 mcg PO DAILY 10/13/19 06/20/22 Simvastatin [Zocor] 20 mg PO HS 10/13/19 06/20/22 metFORMIN HCL [Glucophage] 500 mg PO BID 10/13/19 06/20/22 ramipriL [Altace] 5 mg PO DAILY 10/13/19 06/20/22 Latanoprostene Bunod [Vyzulta] 1 drop BOTH EYES HS 06/20/22 06/20/22 Allergies Allergy/AdvReac Type Severity Reaction Status Date / Time No Known Allergies Allergy Verified 06/20/22 22:13 Review of Systems ROS Statement: Those systems with pertinent positive or pertinent negative responses have been documented in the HPI. ROS Other: All systems not noted in ROS Statement are negative. Past Medical History Past Medical History: Diabetes Mellitus, Hyperlipidemia, Hypertension, Thyroid Disorder Additional Past Medical History / Comment(s): kidney stones, recent admission for urinary infection History of Any Multi-Drug Resistant Organisms: None Reported Past Surgical History: Appendectomy Additional Past Surgical History / Comment(s): cystoscopy Past Anesthesia/Blood Transfusion Reactions: No Reported Reaction Past Psychological History: No Psychological Hx Reported Smoking Status: Never smoker Past Alcohol Use History: Occasional Past Drug Use History: None Reported - Past Family History Father Family Medical History: Deep Vein Thrombosis (DVT) Mother Family Medical History: Cancer General Exam Limitations: no limitations General appearance: alert, in distress Head exam: Present: atraumatic, normocephalic, normal inspection Respiratory exam: Present: normal lung sounds bilaterally. Absent: respiratory distress, wheezes, rales, rhonchi, stridor Cardiovascular Exam: Present: regular rate, normal rhythm, normal heart sounds. Absent: systolic murmur, diastolic murmur, rubs, gallop, clicks GI/Abdominal exam: Present: soft, tenderness (Periumbilical), hypoactive bowel sounds. Absent: distended, guarding, rebound, rigid Neurological exam: Present: alert, oriented X3, CN II-XII intact Psychiatric exam: Present: normal affect, normal mood Skin exam: Present: warm, dry, intact, normal color. Absent: rash Course Vital Signs 06/20/22 06/20/22 17:32 20:00 Temperature 98.5 F Pulse Rate 117 H 99 Respiratory 20 18 Rate Blood Pressure 135/82 O2 Sat by Pulse 97 99 Oximetry Medical Decision Making - Medical Decision Making This is a 56-year-old male who presents to the emergency department for abdominal pain. Lab work and urinalysis consistent with DKA. Patient has a glucose of 317, a bicarbonate of 12, an anion gap of 18, pH of 7.3, and he is acetone positive. He was rehydrated with 2 L of normal saline and started on the DKA protocol. Discussed with the patient that this is likely the reason for the abdominal pain, nausea, and diarrhea. Patient will be admitted to medicine for further management. He may need medication adjustments, as he is currently only taking 500 mg of metformin twice daily. A1c pending at time of admission. This case was discussed in detail with the attending ED physician. Presentation, findings, and treatment plan discussed in detail as well. - Lab Data Result diagrams: 06/20/22 18:37 06/20/22 18:37 Lab Results 06/20/22 06/20/22 06/20/22 Range/Units 18:37 18:37 18:37 WBC 9.0 (3.8-10.6) k/uL RBC 5.26 (4.30-5.90) m/uL Hgb 15.9 (13.0-17.5) gm/dL Hct 48.4 (39.0-53.0) % MCV 92.0 (80.0-100.0) fL MCH 30.2 (25.0-35.0) pg MCHC 32.8 (31.0-37.0) g/dL RDW 13.2 (11.5-15.5) % Plt Count 150 (150-450) k/uL MPV 10.6 Neutrophils % 76 % Lymphocytes % 12 % Monocytes % 8 % Eosinophils % 1 % Basophils % 1 % Neutrophils # 6.8 (1.3-7.7) k/uL Lymphocytes # 1.1 (1.0-4.8) k/uL Monocytes # 0.8 (0-1.0) k/uL Eosinophils # 0.1 (0-0.7) k/uL Basophils # 0.0 (0-0.2) k/uL VBG pH (7.31-7.41) VBG pCO2 (37-51) mmHg VBG HCO3 (24-28) mmol/L Sodium 133 L (137-145) mmol/L Potassium 5.3 H (3.5-5.1) mmol/L Chloride 103 (98-107) mmol/L Carbon Dioxide 12 L (22-30) mmol/L Anion Gap 18 mmol/L BUN 12 (9-20) mg/dL Creatinine 1.08 (0.66-1.25) mg/dL Est GFR (CKD-EPI)AfAm 89 (>60 ml/min/1.73 sqM) Est GFR (CKD-EPI)NonAf 77 (>60 ml/min/1.73 sqM) Glucose 317 H (74-99) mg/dL Calcium 9.4 (8.4-10.2) mg/dL Phosphorus (2.5-4.5) mg/dL Magnesium (1.6-2.3) mg/dL Total Bilirubin 1.0 (0.2-1.3) mg/dL AST 31 (17-59) U/L ALT 28 (4-49) U/L Alkaline Phosphatase 92 (38-126) U/L Troponin I <0.012 (0.000-0.034) ng/mL Total Protein 8.3 H (6.3-8.2) g/dL Albumin 4.6 (3.5-5.0) g/dL Amylase 91 (30-110) U/L Lipase 171 (23-300) U/L Urine Color Urine Appearance (Clear) Urine pH (5.0-8.0) Ur Specific [place] (1.001-1.035) Urine Protein (Negative) Urine Glucose (UA) (Negative) Urine Ketones (Negative) Urine Blood (Negative) Urine Nitrite (Negative) Urine Bilirubin (Negative) Urine Urobilinogen (<2.0) mg/dL Ur Leukocyte Esterase (Negative) Urine RBC (0-5) /hpf Urine WBC (0-5) /hpf Ur Squamous Epith Cells (0-4) /hpf Urine Mucus (None) /hpf Acetone, Qual (Negative) 06/20/22 06/20/22 06/20/22 Range/Units 19:10 19:39 19:39 WBC (3.8-10.6) k/uL RBC (4.30-5.90) m/uL Hgb (13.0-17.5) gm/dL Hct (39.0-53.0) % MCV (80.0-100.0) fL MCH (25.0-35.0) pg MCHC (31.0-37.0) g/dL RDW (11.5-15.5) % Plt Count (150-450) k/uL MPV Neutrophils % % Lymphocytes % % Monocytes % % Eosinophils % % Basophils % % Neutrophils # (1.3-7.7) k/uL Lymphocytes # (1.0-4.8) k/uL Monocytes # (0-1.0) k/uL Eosinophils # (0-0.7) k/uL Basophils # (0-0.2) k/uL VBG pH (7.31-7.41) VBG pCO2 (37-51) mmHg VBG HCO3 (24-28) mmol/L Sodium (137-145) mmol/L Potassium (3.5-5.1) mmol/L Chloride (98-107) mmol/L Carbon Dioxide (22-30) mmol/L Anion Gap mmol/L BUN (9-20) mg/dL Creatinine (0.66-1.25) mg/dL Est GFR (CKD-EPI)AfAm (>60 ml/min/1.73 sqM) Est GFR (CKD-EPI)NonAf (>60 ml/min/1.73 sqM) Glucose (74-99) mg/dL Calcium (8.4-10.2) mg/dL Phosphorus 3.9 (2.5-4.5) mg/dL Magnesium 1.6 (1.6-2.3) mg/dL Total Bilirubin (0.2-1.3) mg/dL AST (17-59) U/L ALT (4-49) U/L Alkaline Phosphatase (38-126) U/L Troponin I (0.000-0.034) ng/mL Total Protein (6.3-8.2) g/dL Albumin (3.5-5.0) g/dL Amylase (30-110) U/L Lipase (23-300) U/L Urine Color Yellow Urine Appearance Clear (Clear) Urine pH 5.5 (5.0-8.0) Ur Specific [place] 1.037 H (1.001-1.035) Urine Protein 1+ H (Negative) Urine Glucose (UA) 4+ H (Negative) Urine Ketones 4+ H (Negative) Urine Blood Small H (Negative) Urine Nitrite Negative (Negative) Urine Bilirubin Negative (Negative) Urine Urobilinogen <2.0 (<2.0) mg/dL Ur Leukocyte Esterase Negative (Negative) Urine RBC 1 (0-5) /hpf Urine WBC 1 (0-5) /hpf Ur Squamous Epith Cells 1 (0-4) /hpf Urine Mucus Rare H (None) /hpf Acetone, Qual Positive (Negative) 06/20/22 Range/Units 19:48 WBC (3.8-10.6) k/uL RBC (4.30-5.90) m/uL Hgb (13.0-17.5) gm/dL Hct (39.0-53.0) % MCV (80.0-100.0) fL MCH (25.0-35.0) pg MCHC (31.0-37.0) g/dL RDW (11.5-15.5) % Plt Count (150-450) k/uL MPV Neutrophils % % Lymphocytes % % Monocytes % % Eosinophils % % Basophils % % Neutrophils # (1.3-7.7) k/uL Lymphocytes # (1.0-4.8) k/uL Monocytes # (0-1.0) k/uL Eosinophils # (0-0.7) k/uL Basophils # (0-0.2) k/uL VBG pH 7.30 L (7.31-7.41) VBG pCO2 33 L (37-51) mmHg VBG HCO3 16 L (24-28) mmol/L Sodium (137-145) mmol/L Potassium (3.5-5.1) mmol/L Chloride (98-107) mmol/L Carbon Dioxide (22-30) mmol/L Anion Gap mmol/L BUN (9-20) mg/dL Creatinine (0.66-1.25) mg/dL Est GFR (CKD-EPI)AfAm (>60 ml/min/1.73 sqM) Est GFR (CKD-EPI)NonAf (>60 ml/min/1.73 sqM) Glucose (74-99) mg/dL Calcium (8.4-10.2) mg/dL Phosphorus (2.5-4.5) mg/dL Magnesium (1.6-2.3) mg/dL Total Bilirubin (0.2-1.3) mg/dL AST (17-59) U/L ALT (4-49) U/L Alkaline Phosphatase (38-126) U/L Troponin I (0.000-0.034) ng/mL Total Protein (6.3-8.2) g/dL Albumin (3.5-5.0) g/dL Amylase (30-110) U/L Lipase (23-300) U/L Urine Color Urine Appearance (Clear) Urine pH (5.0-8.0) Ur Specific [place] (1.001-1.035) Urine Protein (Negative) Urine Glucose (UA) (Negative) Urine Ketones (Negative) Urine Blood (Negative) Urine Nitrite (Negative) Urine Bilirubin (Negative) Urine Urobilinogen (<2.0) mg/dL Ur Leukocyte Esterase (Negative) Urine RBC (0-5) /hpf Urine WBC (0-5) /hpf Ur Squamous Epith Cells (0-4) /hpf Urine Mucus (None) /hpf Acetone, Qual (Negative) - EKG Data EKG Comments: Sinus rhythm. Ventricular rate 93 bpm, OR interval 148 ms, QRS duration 86 ms, QTC 385 ms. Disposition Clinical Impression: DKA (diabetic ketoacidosis) Disposition: ADMITTED IP TO THIS HOSP
[2022-06-20 18:54] LABS: Albumin 4.6 g/dL (3.5-5.0); Calcium 9.4 mg/dL (8.4-10.2); Potassium 5.3 mmol/L (3.5-5.1); Total Protein 8.3 g/dL (6.3-8.2)
[2022-06-20 18:56] LABS: Basophils % (A) 1 %; Eosinophils # (A) 0.1 k/uL (0-0.7); Eosinophils % (A) 1 %; HCT 48.4 % (39.0-53.0); HGB 15.9 gm/dL (13.0-17.5); Lymphocytes # (A) 1.1 k/uL (1.0-4.8); Lymphocytes % (A) 12 %; MCH 30.2 pg (25.0-35.0); MCHC 32.8 g/dL (31.0-37.0); Mean Platelet Volume 10.6; Monocytes # (A) 0.8 k/uL (0-1.0); Monocytes % (A) 8 %; Neutrophils # (A) 6.8 k/uL (1.3-7.7); Neutrophils % (A) 76 %; Platelet Count 150 k/uL (150-450); RBC 5.26 m/uL (4.30-5.90); RDW 13.2 % (11.5-15.5)
[2022-06-20 19:28] LABS: Magnesium 1.6 mg/dL (1.6-2.3); Phosphorus 3.9 mg/dL (2.5-4.5)
[2022-06-20 19:51] LABS: VBG PH 7.3 (7.31-7.41)
[2022-06-20] MEDS ORDERED: INSULIN REGULAR 100 UNIT in SODIUM CHLORIDE 0.9% 100 ML IV SCH (20:30)
[2022-06-20 21:07] LABS: Glucose,Whole Blood 259 mg/dL (70-110)
[2022-06-20] MEDS ORDERED: ONDANSETRON 4 MG/2 ML VIAL IVP PRN (21:16)
[2022-06-20] MEDS ORDERED: ACETAMINOPHEN TAB 325 MG TAB PO PRN (21:16)
[2022-06-20] MEDS ORDERED: HYDROcodone/APAP 5-325MG 1 EACH TAB PO PRN (21:16)
[2022-06-20] MEDS ORDERED: NALOXONE 0.4 MG/ML 1 ML VIAL IV PRN (21:16)
[2022-06-20 21:24] LABS: Appearance,Urine Clear (Clear); Bilirubin,Urine Negative (Negative); Blood,Urine Small (Negative); Color,Urine Yellow; Glucose,Urine (UA) 4+ (Negative); Leukocyte Esterase,Urine Negative (Negative); Mucus,Urine Rare /hpf; Nitrite,Urine Negative (Negative); PH, Urine 5.5 (5.0-8.0); Protein,Urine 1+ (Negative); RBC,Urine 1 /hpf (0-5); Specific Gravity,Urine 1.037 (1.001-1.035); Squamous Epithelial Cell,Urine 1 /hpf (0-4); Urobilinogen,Urine <2.0 mg/dL (<2.0); WBC,Urine 1 /hpf (0-5)
[2022-06-20 21:34] LABS: Ketones,Urine 4+ (Negative)
[2022-06-20] MEDS: D5-0.45% NACL WITH KCL 20MEQ/L 1,000 ML IV SCH (22:11)
[2022-06-20] MEDS: INSULIN REGULAR 100 UNIT in SODIUM CHLORIDE 0.9% 100 ML IV SCH (23:12)
[2022-06-20 23:19] LABS: Glucose,Whole Blood 272 mg/dL (70-110)
[2022-06-21 00:26] LABS: Glucose,Whole Blood 306 mg/dL (70-110)
[2022-06-21 00:36] LABS: African American GFR (CKD) >90 (>60 ml/min/1.73 sqM); Anion Gap 12 mmol/L; Blood Urea Nitrogen 12 mg/dL (9-20); Carbon Dioxide 14 mmol/L (22-30); Chloride 109 mmol/L (98-107); Glucose 343 mg/dL (74-99); Non-African American GFR(CKD) 86 (>60 ml/min/1.73 sqM); Potassium 4.5 mmol/L (3.5-5.1); Sodium 135 mmol/L (137-145)
[2022-06-21 01:43] LABS: Glucose,Whole Blood 297 mg/dL (70-110)
[2022-06-21] MEDS: D5-0.45% NACL WITH KCL 20MEQ/L 1,000 ML IV SCH ×4 (01:51→09:12)
[2022-06-21 02:46] LABS: Glucose,Whole Blood 269 mg/dL (70-110)
[2022-06-21 03:43] LABS: Glucose,Whole Blood 211 mg/dL (70-110)
[2022-06-21 04:36] LABS: Glucose,Whole Blood 196 mg/dL (70-110)
[2022-06-21 05:19] LABS: African American GFR (CKD) >90 (>60 ml/min/1.73 sqM); Anion Gap 8 mmol/L; Blood Urea Nitrogen 12 mg/dL (9-20); Carbon Dioxide 16 mmol/L (22-30); Chloride 112 mmol/L (98-107); Glucose 225 mg/dL (74-99); Non-African American GFR(CKD) 88 (>60 ml/min/1.73 sqM); Potassium 4.1 mmol/L (3.5-5.1); Sodium 136 mmol/L (137-145)
[2022-06-21 05:42] LABS: Glucose,Whole Blood 193 mg/dL (70-110)
[2022-06-21 06:35] LABS: Glucose,Whole Blood 178 mg/dL (70-110)
[2022-06-21] MEDS: LEVOTHYROXINE 50 MCG TAB PO SCH (06:39)
[2022-06-21 07:30] LABS: Glucose,Whole Blood 165 mg/dL (70-110)
[2022-06-21] MEDS: INSULIN REGULAR 100 UNIT in SODIUM CHLORIDE 0.9% 100 ML IV SCH ×3 (08:35→13:31)
[2022-06-21 08:40] LABS: Glucose,Whole Blood 156 mg/dL (70-110)
[2022-06-21] MEDS: lisinopriL 20 MG TAB PO SCH (08:44)
[2022-06-21 09:52] LABS: Glucose,Whole Blood 131 mg/dL (70-110)
[2022-06-21 10:39] LABS: Glucose,Whole Blood 176 mg/dL (70-110)
[2022-06-21 11:47] LABS: Glucose,Whole Blood 339 mg/dL (70-110)
[2022-06-21] MEDS: ATORVASTATIN 10 MG TAB PO SCH ×2 (11:51→20:08)
[2022-06-21] MEDS: SODIUM CHLORIDE 0.9% 1,000 ML IV SCH ×2 (11:51→12:55)
[2022-06-21] MEDS: LATANOPROST 0.005% OPHTH DROPS 2.5 ML BTL BOTH EYES SCH ×2 (11:51→21:03)
[2022-06-21 12:53] LABS: Glucose,Whole Blood 286 mg/dL (70-110)
[2022-06-21 13:04] LABS: Albumin 3.4 g/dL (3.5-5.0); Calcium 8.7 mg/dL (8.4-10.2); Phosphorus 2.6 mg/dL (2.5-4.5); Potassium 4.4 mmol/L (3.5-5.1); Total Bilirubin 0.3 mg/dL (0.2-1.3); Total Protein 6.2 g/dL (6.3-8.2)
[2022-06-21] MEDS ORDERED: DEXTROSE 50% SYRINGE 50 ML IVP PRN ×2 (13:06)
[2022-06-21 13:38] LABS: Glucose,Whole Blood 262 mg/dL (70-110)
[2022-06-21 14:43] LABS: Glucose,Whole Blood 212 mg/dL (70-110)
[2022-06-21 15:33] LABS: Glucose,Whole Blood 265 mg/dL (70-110)
[2022-06-21 16:32] LABS: Glucose,Whole Blood 281 mg/dL (70-110)
[2022-06-21] MEDS: INSULIN ASPART (NovoLOG) 100 UNIT/ML VIAL SQ SCH ×3 (16:35→20:08)
[2022-06-21] MEDS ORDERED: INSULIN DETEMIR (LEVEMIR) 100 UNIT/ML SYR SQ STA (16:48)
[2022-06-21 17:40] LABS: Glucose,Whole Blood 265 mg/dL (70-110)
[2022-06-21 18:31] LABS: Glucose,Whole Blood 247 mg/dL (70-110)
--- NOTE | 2022-06-21 19:21 | HP ---
HISTORY AND PHYSICAL CHIEF COMPLAINTS: Abdominal pain and diabetic ketoacidosis. HISTORY OF PRESENT ILLNESS: This 56-year-old gentleman with a past medical history of diabetes mellitus, hypothyroidism, being followed by Dr. Todd's office, was complaining of abdominal pain. The patient came to [facility]. The blood sugars were elevated up to 343. Ketones were positive and the patient was admitted for diabetic ketoacidosis. Insulin drip is on at this time. Serum acetone is positive. There is no history of any fever, rigors or chills at this time. PAST MEDICAL HISTORY: History of diabetes mellitus, hypothyroidism. HOME MEDICATIONS: Reviewed. They include Altace. Doses and the rest of the medications are reviewed. ALLERGIES: NONE. FAMILY HISTORY: History of DVT. SOCIAL HISTORY: Occasional alcohol. REVIEW OF SYSTEMS: Fourteen-point review of systems negative except as mentioned earlier. PHYSICAL EXAMINATION: Pulse is 88, blood pressure 121/98, respirations 16. HEENT: Conjunctivae normal. NECK: Obese. CARDIOVASCULAR: S1, S2 muffled. RESPIRATION: Breath sounds diminished at the bases. No rhonchi. No crackles. ABDOMEN: Soft, obese. Non-tender. No mass palpable. LEGS: No edema. No swelling. NERVOUS SYSTEM: No focal deficit. SKIN: No ulcer, rash, bleeding. JOINTS: No active deforming arthropathy. LABS: Reviewed and include sodium 134. The rest of the labs are noted. ASSESSMENT: 1. Acute diabetic ketoacidosis. 2. Hypothyroidism. 3. Appendectomy. 4. Obesity. RECOMMENDATIONS AND DISCUSSION: In this 56-year-old gentleman who presented with multiple complex medical issues, I recommend to continue the current medications, continue symptomatic treatment. The patient has already received around 60 units of insulin so far. I would recommend continuing the drip and follow the protocol. Once the gap is closed, the patient may be transitioned to Lantus 60 units subcutaneously b.i.d. plus 5 units t.i.d. with mealtime insulin as well as insulin scale on the top. Insulins may be held if Accu-Cheks are less than 100. Follow the hypoglycemia protocol. Prognosis guarded. Discussed with the patient. Diabetic education also may be given. Further recommendations to follow. See orders for further details. MMODL / IJN: [id number] /
[2022-06-21 20:03] LABS: Glucose,Whole Blood 298 mg/dL (70-110)
[2022-06-21] MEDS: INSULIN DETEMIR (LEVEMIR) 100 UNIT/ML SYR SQ SCH (20:08)
[2022-06-22 02:01] LABS: Glucose,Whole Blood 336 mg/dL (70-110)
[2022-06-22 04:02] LABS: Calcium 8.6 mg/dL (8.4-10.2); Potassium 4.1 mmol/L (3.5-5.1)
[2022-06-22 07:15] LABS: Glucose,Whole Blood 228 mg/dL (70-110)
[2022-06-22] MEDS: INSULIN ASPART (NovoLOG) 100 UNIT/ML VIAL SQ SCH ×7 (07:32→20:49)
[2022-06-22] MEDS: lisinopriL 20 MG TAB PO SCH (07:32)
[2022-06-22] MEDS: INSULIN DETEMIR (LEVEMIR) 100 UNIT/ML SYR SQ SCH ×2 (07:32→20:48)
[2022-06-22 11:53] LABS: Glucose,Whole Blood 267 mg/dL (70-110)
--- NOTE | 2022-06-22 15:28 | PN ---
PROGRESS NOTE DATE OF SERVICE: 06/22/2022 This 56-year-old gentleman admitted with acute diabetic ketoacidosis still has elevated blood sugars. Patient is on twice-daily Lantus at this time. No chest pain, no palpitations, no fever. PHYSICAL EXAMINATION: Pulse 77, blood pressure 93/69, respirations 16. HEENT: Conjunctivae normal. NECK: No jugular venous distention. CARDIOVASCULAR: S1, S2 muffled. RESPIRATION: Breath sounds diminished at the bases. ABDOMEN: Soft, obese. LEGS: No edema. No swelling. NERVOUS SYSTEM: No focal deficit. LABS: Reviewed. Accu-Cheks 228, 267. ASSESSMENT: 1. Acute diabetic ketoacidosis with elevated blood sugars. 2. Hypothyroidism. 3. Appendectomy. 4. Obesity. DISCUSSION AND RECOMMENDATIONS: I recommend to continue current medications, continue with the monitoring, symptomatic treatment. I would recommend increasing the dose of Lantus to 70 twice daily and continue the rest of the medications. Continue to monitor. Further recommendations to follow. MMODL / IJN: [id number] /
[2022-06-22 16:50] LABS: Glucose,Whole Blood 321 mg/dL (70-110)
[2022-06-22 20:04] LABS: Glucose,Whole Blood 363 mg/dL (70-110)
[2022-06-22] MEDS: ATORVASTATIN 10 MG TAB PO SCH (20:48)
[2022-06-22] MEDS: LATANOPROST 0.005% OPHTH DROPS 2.5 ML BTL BOTH EYES SCH (20:49)
[2022-06-23 01:41] LABS: Glucose,Whole Blood 165 mg/dL (70-110)
[2022-06-23] MEDS: LEVOTHYROXINE 50 MCG TAB PO SCH (05:29)
[2022-06-23 07:19] LABS: Glucose,Whole Blood 112 mg/dL (70-110)
[2022-06-23] MEDS: INSULIN ASPART (NovoLOG) 100 UNIT/ML VIAL SQ SCH ×4 (07:20→11:34)
[2022-06-23] MEDS: INSULIN DETEMIR (LEVEMIR) 100 UNIT/ML SYR SQ SCH (07:24)
[2022-06-23] MEDS: lisinopriL 20 MG TAB PO SCH (07:24)
[2022-06-23 07:28] VITALS: BP 115/76; PULSE 71; RESP 20; TEMP 97.7
[2022-06-23] MEDS ORDERED: ERGOCALCIFEROL 1,250 MCG (50,000 IU) CAPSULE PO SCH (09:00)
[2022-06-23 10:59] LABS: Glucose,Whole Blood 211 mg/dL (70-110)
--- NOTE | 2022-06-23 13:00 | P.PN ---
Progress Note - Text Progress Note Date: 06/23/22 At discharge, today patient will require glucometer, requiring insulin as he is insulin-dependent and diabetic supplies. The impression and plan of care has been dictated as directed. : I performed a history and examination of this patient, discussed the same with the dictator. I agree with the dictator's note ,documented as a scribe. Any additional findings or plans will be noted.
--- NOTE | 2022-06-23 15:36 | P.DS ---
Providers Date of admission: 06/20/22 20:14 Expected date of discharge: 06/23/22 Attending physician: Jeffery Todd MD Primary care physician: Annia Brown Hospital Course: Final Diagnoses: Acute DKA Hypothyroidism Morbid obesity, BMI 37.7 Hospital course: This a 56-year-old gentleman admitted with acute diabetic ketoacidosis, treated with DKA protocol, gap closed,transitioned to long-acting insulin in addition to sliding scale. Hemoglobin A1c 13. Blood sugars currently down to 112. Bicarb 18, anion gap 6, renal function stable Significant clinical improvement. Denies any nausea vomiting or abdominal pain. Denies any diarrhea. Denies any headache, blurred vision. Denies any chest pain, palpitations or shortness of breath. Patient will be discharged home today in a stable condition with guarded prognosis on long acting insulin. Will require a glucometer at discharge, being arranged per case management. Patient has been advised to perform Accu-Cheks before meals and at bedtime, maintain log intake to follow-up visit with PCP this week for further recommendations. Patient will also require additional diabetic education including clinic with PCP. The impression and plan of care has been dictated as directed. : I performed a history and examination of this patient, discussed the same with the dictator. I agree with the dictator's note ,documented as a scribe. Any additional findings or plans will be noted. Patient Condition at Discharge: Stable Plan - Discharge Summary Discharge Rx Participant: No New Discharge Prescriptions: New Syringe-Needle,Insulin,0.5 ml [Insulin Syringe 30G /16" 1/2 ml] 1 each ACHS #120 each Insulin Detemir (Levemir) [Levemir] 35 unit SQ HS #10 ml Discontinued metFORMIN HCL [Glucophage] 500 mg PO BID No Action Ergocalciferol [Vitamin D2] 50,000 unit PO MO Simvastatin [Zocor] 20 mg PO HS ramipriL [Altace] 5 mg PO DAILY Levothyroxine Sodium [Synthroid] 50 mcg PO DAILY Latanoprostene Bunod [Vyzulta] 1 drop BOTH EYES HS Discharge Medication List Ergocalciferol [Vitamin D2] 50,000 unit PO MO 10/13/19 [History] Levothyroxine Sodium [Synthroid] 50 mcg PO DAILY 10/13/19 [History] Simvastatin [Zocor] 20 mg PO HS 10/13/19 [History] ramipriL [Altace] 5 mg PO DAILY 10/13/19 [History] Latanoprostene Bunod [Vyzulta] 1 drop BOTH EYES HS 06/20/22 [History] Insulin Detemir (Levemir) [Levemir] 35 unit SQ HS #10 ml 06/23/22 [Rx] Syringe-Needle,Insulin,0.5 ml [Insulin Syringe 30G 516" 1/2 ml] 1 each ACHS #120 each 06/23/22 [Rx] Follow up Appointment(s)/Referral(s): [facility],Equipment [NON-STAFF] - 1 Week Cinda Ortega, PAC [REFERRING] - 06/24/22 9:15 am () Patient Instructions/Handouts: Diabetic Ketoacidosis (DC) Activity/Diet/Wound Care/Special Instructions: Maintain log of Accu-Cheks before meals and at bedtime, take to follow up visit with PCP for further recommendations. Hemoglobin A1c 13, further outpatient diabetic education in clinic with PCP Case management to assist with glucometer/diabetic supplies
[2022-06-24 09:28] LABS: Estimated Average Glucose CANCELED
== END 2022-06-23 14:07 | disposition home or self-care (01) | DRG 639 ==
LOC: EC 17:26 → 3SCARD 20:14 → 4SSUR 06-23 01:59
PROVIDERS: ADMIT Family Medicine; ATTEND Family Medicine
DX: E11.10 Type 2 diabetes mellitus with ketoacidosis without coma (principal); E03.9 Hypothyroidism, unspecified; E66.01 Morbid (severe) obesity due to excess calories; E78.5 Hyperlipidemia, unspecified; I10 Essential (primary) hypertension; Z68.37 Body mass index [BMI] 37.0-37.9, adult; Z79.890 Hormone replacement therapy; Z87.442 Personal history of urinary calculi; Z79.4 Long term (current) use of insulin; Z79.899 Other long term (current) drug therapy; Z87.19 Personal history of other diseases of the digestive system
CPT/HCPCS: 36415; 80048; 80051; 80053; 81001; 82009; 82150; 82565; 82803; 82947; 83036; 83690; 83735; 84100; 84484; 84520; 85025; 93005; 96361; 96365; 96366; 96375; 99285